=== PATIENT | female | born 1955 | race American Indian/Alaskan Native ===

== ENCOUNTER 2018-12-26 08:41 | Outpatient (CLI) | payer MEDICAID ==
--- NOTE | 2018-12-27 08:43 | Mammography Report ---
DIGITAL SCREENING MAMMOGRAM WITH CAD, 12/26/2018 INDICATION: Routine screening mammography. TECHNIQUE: Digital bilateral 2D mammography was obtained in the craniocaudal and mediolateral obliq ue projections. This examination was interpreted with the benefit of Computer-Aided Detection analysi s. COMPARISON: 12/14/2017 FINDINGS: Breast Density: The breasts are almost entirely fatty. There is no evidence of dominant mass, suspicious calcifications or architectural distortion in eithe r breast. A pacemaker obscures the upper portion of the right breast on the MLO view. Bilateral benig n calcifications which are mostly arterial. IMPRESSION: No mammographic evidence of malignancy. Follow up recommendation: Routine yearly BI-RADS Category 2: Benign. A "normal" or negative report should not discourage follow up or biopsy of a clinically significant f inding. A written summary of these findings will be mailed to the patient. The patient will be entered into a mammography reporting system which will generate a reminder letter for the patient's next appointmen t at the appropriate interval. The [employer] recommends yearly mammograms starting at age 40 and continuing as l elsa as a woman is in good health. Breast MRI is recommended for women with an approximate 20-25% or greater lifetime risk of breast cancer, including women with a strong family history of breast or ova maciej cancer or who have been treated for Hodgkin's disease. Signer Name: Danie Coe MD Signed: 12/27/2018 8:39 AM Workstation Name: [id number]
== END 2018-12-26 08:42 | disposition home or self-care (01) ==
LOC: MAMMO 08:41
PROVIDERS: ATTEND Internal Medicine
DX: Z12.31 Encounter for screening mammogram for malignant neoplasm of breast (principal); I11.0 Hypertensive heart disease with heart failure; I50.9 Heart failure, unspecified
CPT/HCPCS: 77067

== ENCOUNTER 2020-05-13 08:03 | Outpatient (CLI) | payer MEDICAID ==
--- NOTE | 2020-05-13 09:11 | Mammography Report ---
DIGITAL SCREENING MAMMOGRAM WITH CAD, 05/13/2020 CLINICAL INFORMATION / INDICATION: Routine screening mammography. TECHNIQUE: Digital bilateral 2D mammography was obtained in the craniocaudal and mediolateral obliqu e projections. This examination was interpreted with the benefit of Computer-Aided Detection analysis . COMPARISON: 12/26/2018 FINDINGS: Breast Density: The breasts are almost entirely fatty. No dominant mass, suspicious calcifications, or architectural distortion in either breast. Benign vascular calcifications are noted bilaterally. Overall, no significant interval change. IMPRESSION: No mammographic evidence of malignancy. Follow up recommendation: Routine yearly BI-RADS Category 2: Benign. A "normal" or negative report should not discourage follow up or biopsy of a clinically significant f inding. A written summary of these findings will be mailed to the patient. The patient will be entered into a mammography reporting system which will generate a reminder letter for the patient's next appointmen t at the appropriate interval. The [employer] recommends yearly mammograms starting at age 40 and continuing as l elsa as a woman is in good health. Breast MRI is recommended for women with an approximate 20-25% or greater lifetime risk of breast cancer, including women with a strong family history of breast or ova maciej cancer or who have been treated for Hodgkin's disease. Signer Name: Leatha Barrientos MD Signed: 05/13/2020 9:06 AM Workstation Name: [id number]
== END 2020-05-13 08:04 | disposition home or self-care (01) ==
LOC: MAMMO 08:03
PROVIDERS: ATTEND Internal Medicine
DX: Z12.31 Encounter for screening mammogram for malignant neoplasm of breast (principal); N64.89 Other specified disorders of breast
CPT/HCPCS: 77067

== ENCOUNTER 2021-07-11 08:03 | Outpatient (CLI) | payer MEDICAID ==
--- NOTE | 2021-07-11 12:07 | Mammography Report ---
DIGITAL SCREENING MAMMOGRAM WITH CAD, 07/11/2021 CLINICAL INFORMATION / INDICATION: Routine screening mammography. Z12.39 TECHNIQUE: Digital bilateral 2D mammography was obtained in the craniocaudal and mediolateral obliqu e projections. This examination was interpreted with the benefit of Computer-Aided Detection analysis . COMPARISON: 05/13/2020, 12/26/2018 FINDINGS: Breast Density: There are scattered areas of fibroglandular density. No dominant mass, suspicious calcifications, or architectural distortion in either breast. There is a pacemaker on the right. There are benign-appearing arterial vascular calcifications and sc attered calcifications bilaterally. IMPRESSION: No mammographic evidence of malignancy. Follow up recommendation: Routine yearly screening mammogram. BI-RADS Category 2: BENIGN. A "normal" or negative report should not discourage follow up or biopsy of a clinically significant f inding. A written summary of these findings will be mailed to the patient. The patient will be entered into a mammography reporting system which will generate a reminder letter for the patient's next appointmen t at the appropriate interval. The [employer] recommends yearly mammograms starting at age 40 and continuing as l elsa as a woman is in good health. Breast MRI is recommended for women with an approximate 20-25% or greater lifetime risk of breast cancer, including women with a strong family history of breast or ova maciej cancer or who have been treated for Hodgkin's disease. Signer Name: Ra Pierre MD Signed: 07/11/2021 12:02 PM Workstation Name: [email or web address]
== END 2021-07-11 08:04 | disposition home or self-care (01) ==
LOC: MAMMO 08:03
PROVIDERS: ATTEND Internal Medicine
DX: Z12.31 Encounter for screening mammogram for malignant neoplasm of breast (principal)
CPT/HCPCS: 77067

== ENCOUNTER 2021-09-18 09:22 | Emergency (ER) | payer MEDICAID ==
--- NOTE | 2021-09-18 10:42 | Emergency Department Report ---
Chief Complaint: Extremity Problem,Nontraumatic Stated Complaint: BACK PAIN/SWOLLEN LEGS Time Seen by Provider: 09/18/21 10:30 - HPI History of Present Illness: 65-year-old female with past medical history of diabetes, pacemaker, asthma, heart failure, hypertension reports to the ER with bilateral swelling in lower extremities for 1 week, dizziness 2 days and shortness of breath on exertion. Patient denies chest discomfort today but reports chest discomfort yesterday for about 30 minutes. Patient reports taking all her medications as as directed. Patient does report she has not taken her medications for today though. - ROS Review of Systems: Bilateral lower extremity swelling dizziness Shortness of breath on exertion - Exam Vital Signs: No initial vitals taken by triage nurse. Pending vitals to be taken by nursing staff in the back. Physical Exam: Bilateral lower swelling noted with edema that is pitting +2 Patient in no acute distress. No labored breathing. Patient is ambulatory. GCS 15. Alert and oriented x4. MSE screening note: Focused history and physical exam performed. Due to findings the following was ordered: Orders have been placed on this patient. Patient to be bedded in the main ER. Charge nurse has been notified of patient's condition. ER attending Dr. Adam Leary has been notified. Vital Signs 09/18/21 10:42 Temperature 97.7 F Pulse Rate 66 Blood Pressure 143/55 [Left] Patient discussed with doctor:: ADAM LEARY [place] [facility] [place]
[2021-09-18 11:16] LABS: Basophils % (Auto) 0.8 % (0.0-1.8); Eosinophils # (Auto) 0.2 K/mm3 (0.0-0.4); Eosinophils % (Auto) 3.7 % (0.0-4.3); Hematocrit 32.4 % (30.3-42.9); Hemoglobin 10.4 gm/dl (10.1-14.3); Lymphocytes # (Auto) 1.5 K/mm3 (1.2-5.4); Lymphocytes % (Auto) 28.7 % (13.4-35.0); Mean Corpuscular HGB Conc 32 % (30-34); Mean Corpuscular Volume 84 fl (79-97); Monocytes # (Auto) 0.6 K/mm3 (0.0-0.8); Platelet Count 187 K/mm3 (140-440); Red Blood Count 3.88 M/mm3 (3.65-5.03); Red Cell Distribution Width 16.8 % (13.2-15.2)
--- NOTE | 2021-09-18 11:18 | XRay Report ---
CHEST 2 VIEWS INDICATION / CLINICAL INFORMATION: SOB. COMPARISON: 10/05/2014 FINDINGS: SUPPORT DEVICES: 2-lead pacemaker device appears unchanged in position since the previous exam. HEART / MEDIASTINUM: No significant abnormality. LUNGS / PLEURA: No significant pulmonary or pleural abnormality. No pneumothorax. ADDITIONAL FINDINGS: No significant additional findings. IMPRESSION: 1. No acute findings. Signer Name: Scott Lewis Jr, MD Signed: 09/18/2021 11:14 AM Workstation Name: [id number]
[2021-09-18 11:45] LABS: Albumin 3.8 g/dL (3.9-5); Calcium 8.9 mg/dL (8.4-10.2)
[2021-09-18] MEDS ORDERED: FUROSEMIDE 40 MG/4 ML INJ IV ONE ×2 (12:16→14:34)
[2021-09-18] MEDS ORDERED: HYDROcodone/ACETAMINOPHEN 5-325 MG TAB PO ONE (13:32)
--- NOTE | 2021-09-18 13:32 | Emergency Department Report ---
ED General Adult HPI - General Chief complaint: Dyspnea/Respdistress Stated complaint: BACK PAIN/SWOLLEN LEGS Time Seen by Provider: 09/18/21 10:30 Source: patient Mode of arrival: Ambulatory Limitations: No Limitations - History of Present Illness Initial comments: Patient is a 65-year-old female presenting with complaint of bilateral lower extremity swelling along with pain in her upper and lower back for the past week. She denies any dyspnea or chest pain. She is on Lasix 40 twice daily. History of CHF, diabetes and hypertension. - Related Data Home Medications Medication Instructions Recorded Confirmed Last Taken ALBUTEROL NEB's [Proventil 0.083% 1 inh PO PRN PRN 10/03/13 04/10/14 12/27/13 NEBS] Aspirin [Aspirin BABY CHEW TAB] 81 mg PO DAILY 10/03/13 04/10/14 04/09/14 10:00 Ipratropium/Albuterol Sulfate 2 inhalation .ROUTE TID 10/03/13 04/10/14 12/27/13 [Combivent Respimat] Simvastatin 20 mg PO HS 10/03/13 04/10/14 04/09/14 10:00 Zolpidem (Nf) [Ambien (Nf)] 10 mg PO HS 10/03/13 04/10/14 04/09/14 22:00 Previous Rx's Medication Instructions Recorded Last Taken Type NIFEdipine XL [Procardia Xl] 30 mg PO QDAY #30 tablet 04/18/14 Unknown Rx oxyCODONE /ACETAMINOPHEN [Percocet 1 tab PO Q4H PRN #12 tablet 04/17/15 Unknown Rx 5/325 mg] Cyclobenzaprine [Flexeril] 10 mg PO TID PRN #20 tablet 11/06/18 Unknown Rx Ondansetron [Zofran Odt] 4 mg PO Q8HR PRN #10 tab.rapdis 11/06/18 Unknown Rx cephALEXin [Keflex] 500 mg PO TID 7 Days #21 capsule 11/06/18 Unknown Rx oxyCODONE /ACETAMINOPHEN [Percocet 1 tab PO Q6HR PRN #10 tablet 11/06/18 Unknown Rx 5/325] Allergies Allergy/AdvReac Type Severity Reaction Status Date / Time No Known Allergies Allergy Verified 09/18/21 10:03 ED Review of Systems ROS: Stated complaint: BACK PAIN/SWOLLEN LEGS Other details as noted in HPI Constitutional: denies: chills, fever Respiratory: denies: cough, shortness of breath, wheezing Cardiovascular: edema. denies: chest pain, palpitations Gastrointestinal: denies: abdominal pain, nausea, diarrhea Musculoskeletal: back pain Skin: denies: rash, lesions Neurological: denies: headache, weakness, paresthesias Psychiatric: denies: anxiety, depression ED Past Medical Hx - Past Medical History Hx Hypertension: Yes Hx Heart Attack/AMI: No Hx Congestive Heart Failure: Yes Hx Diabetes: Yes Hx Deep Vein Thrombosis: No Hx Pulmonary Embolism: No Hx Liver Disease: No Hx Renal Disease: Yes Hx Sickle Cell Disease: No Hx Arthritis: Yes Hx Seizures: No Hx Kidney Stones: No Hx Asthma: Yes Hx COPD: No Hx Tuberculosis: No Hx Dementia: No Hx HIV: No Additional medical history: "irregular heartbeat", ON HOME O2, CPAP. ACUTE RENAL FAILURE. OBESITY - Surgical History Hx Coronary Stent: No Hx Open Heart Surgery: No Hx Pacemaker: Yes Hx Internal Defibrillator: No Hx Cholecystectomy: No Hx Appendectomy: No Hx Breast Surgery: No Additional Surgical History: PERMACATH AND REMOVAL - Social History Smoking Status: Never Smoker Substance Use Type: None - Medications Home Medications: Home Medications Medication Instructions Recorded Confirmed Last Taken Type ALBUTEROL NEB's [Proventil 0.083% 1 inh PO PRN PRN 10/03/13 04/10/14 12/27/13 History NEBS] Aspirin [Aspirin BABY CHEW TAB] 81 mg PO DAILY 10/03/13 04/10/14 04/09/14 10:00 History Ipratropium/Albuterol Sulfate 2 inhalation .ROUTE TID 10/03/13 04/10/14 12/27/13 History [Combivent Respimat] Simvastatin 20 mg PO HS 10/03/13 04/10/14 04/09/14 10:00 History Zolpidem (Nf) [Ambien (Nf)] 10 mg PO 10/03/13 04/10/14 04/09/14 22:00 History NIFEdipine XL [Procardia Xl] 30 mg PO QDAY #30 tablet 04/18/14 Unknown Rx oxyCODONE /ACETAMINOPHEN [Percocet 1 tab PO Q4H PRN #12 tablet 04/17/15 Unknown Rx 5/325 mg] Cyclobenzaprine [Flexeril] 10 mg PO TID PRN #20 tablet 11/06/18 Unknown Rx Ondansetron [Zofran Odt] 4 mg PO Q8HR PRN #10 tab.rapdis 11/06/18 Unknown Rx cephALEXin [Keflex] 500 mg PO TID 7 Days #21 capsule 11/06/18 Unknown Rx oxyCODONE /ACETAMINOPHEN [Percocet 1 tab PO Q6HR PRN #10 tablet 11/06/18 Unknown Rx 5/325] ED Physical Exam - General Limitations: No Limitations General appearance: alert, in no apparent distress, obese - Head Head exam: Present: atraumatic, normocephalic - Respiratory Respiratory exam: Present: normal lung sounds bilaterally. Absent: respiratory distress - Cardiovascular Cardiovascular Exam: Present: regular rate, normal rhythm, normal heart sounds - GI/Abdominal GI/Abdominal exam: Present: soft. Absent: distended, tenderness - Extremities Exam Extremities exam: Present: pedal edema. Absent: calf tenderness - Neurological Exam Neurological exam: Present: alert, oriented X3 - Psychiatric Psychiatric exam: Present: normal affect, normal mood - Skin Skin exam: Present: warm, dry, intact, normal color ED Course Vital Signs 09/18/21 10:42 Temperature 97.7 F Pulse Rate 66 Blood Pressure 143/55 [Left] ED Medical Decision Making - Lab Data Result diagrams: 09/18/21 10:49 09/18/21 10:49 - Medical Decision Making No acute findings on chest x-ray. Serum creatinine 1.6. Which is lower than usual for patient. BNP 911. Patient was given 40 mg of IV Lasix in the emergency department. Critical care attestation.: If time is entered above; I have spent that time in minutes in the direct care of this critically ill patient, excluding procedure time. ED Disposition Condition: Stable Referrals: JESS BRUNO MD [Primary Care Provider] - 3-5 Days
[2021-09-18 15:01] LABS: Bilirubin,Urine Negative (Negative); Blood,Urine Negative (Negative); Color,Urine Straw (Yellow); Protein,Urine <15 mg/dL mg/dL (Negative)
[2021-09-18 15:04] LABS: WBC,Urine < 1.0 /HPF (0.0-6.0)
[2021-09-18 15:15] LABS: RBC,Urine < 1.0 /HPF (0.0-6.0)
[2021-09-18 17:29] VITALS: BP 171/84
--- NOTE | 2021-09-22 10:06 | Electrocardiograph Report ---
[facility] Test Date: 2021-09-18 Test Time: 14:04:07 Pat Name: CATHRYN MICHAUD Department: Room: Gender: F Housekeeping Associate: [id number] : 1955 Requested By: ADAM RODRIGUEZ Order Number: [id number] Reading MD: Debra Harrison Measurements Intervals Novelty Rate: 70 P: 75 WY: 183 QRS: 71 QRSD: 87 T: 55 QT: 424 QTc: 457 Interpretive Statements Sinus rhythm Atrial premature complexes Low voltage, precordial leads No previous ECG available for comparison Electronically Signed On 09-22-2021 10:05:45 EDT by Debra Harrison
== END 2021-09-18 17:29 | disposition home or self-care (01) ==
LOC: ED 09:22
DX: M54.50 Low back pain, unspecified (principal); I11.0 Hypertensive heart disease with heart failure; I50.9 Heart failure, unspecified; E11.9 Type 2 diabetes mellitus without complications; M19.90 Unspecified osteoarthritis, unspecified site; N28.9 Disorder of kidney and ureter, unspecified; J45.909 Unspecified asthma, uncomplicated; Z98.890 Other specified postprocedural states
CPT/HCPCS: 36415; 71046; 80053; 81001; 83880; 84484; 85025; 93005; 96374; 96376; 99284; J1940